=== PATIENT | male | born 1955 | race Caucasian/White ===

== ENCOUNTER 2017-11-09 08:59 | Emergency (ER) | payer BC ==
[2017-11-09 09:52] LABS: ABS Basophils 0.1 10^3/ul (0-0.2); ABS Eosinophils 0.1 10^3/ul (0-0.6); ABS Lymphocytes 1.2 10^3/ul (1.0-4.8); ABS Monocytes 0.8 10^3/ul (0-0.8); ABS Neutrophils 11.1 10^3/ul (1.5-7.7); ABS Nucleated RBC 0 10^3/ul; Eosinophil % 0.6 % (0-6); Hematocrit 46 % (42-52); Hemoglobin 15.8 g/dl (14.0-18.0); Lymphocyte % 8.9 % (25-47); Mean Corpuscular HGB Conc 35 g/dl (31-36); Mean Corpuscular Hemoglobin 32 pg (27-31); Mean Corpuscular Volume 92 fL (80-94); Mean Platelet Volume 6.2 um3 (7.4-10.4); Nucleated Red Blood Cells % 0.1; Platelet Count 346 10^3/ul (150-450); Red Blood Count 4.96 10^6/ul (4.0-5.4); Red Cell Distribution Width 13 % (10.5-15); White Blood Count 13.2 10^3/ul (3.5-10.8)
[2017-11-09 10:14] LABS: EGFR Non-African American 59.5 (>60)
--- NOTE | 2017-11-09 10:44 | RAD ---
Indication: Cough, respiratory disease, tobacco use. Comparison: No relevant prior exams available on the [facility] [place] PACS for comparison. Technique: Upright AP 0945 hours Report: Elevated lung volumes and both diffuse mild prominence of the interstitial markings and patchy rarefaction of the mid to upper lung zone interstitial markings. No focal pulmonary lesion, compelling alveolar consolidation, pleural effusion, pneumothorax. The heart, pulmonary vasculature, and mediastinal contours are unremarkable. IMPRESSION: Stigmata of obstructive lung disease. No acute pulmonary or cardiac process evident.
--- NOTE | 2017-11-09 11:01 | RAD ---
INDICATION: Shaky, difficulty getting words out sometimes, hypertension. COMPARISON: There are no prior studies available for comparison. TECHNIQUE: Contiguous axial sections of the brain were obtained from the skull base to the vertex without contrast. FINDINGS: The ventricles, cisterns and sulci are within normal limits. No significant focal abnormality or mass effect is seen. There is no evidence for hemorrhage. There is mild mucosal thickening within the ethmoid air cells. The visualized portion of the paranasal sinuses and mastoid air cells otherwise appear clear. IMPRESSION: NO EVIDENCE FOR GROSS ACUTE INFARCT, MASS EFFECT OR HEMORRHAGE.
[2017-11-09 11:57] LABS: Urine Appearance Clear; Urine Blood Negative (Negative); Urine Color Yellow; Urine Ketones Negative (Negative); Urine Protein Negative (Negative); Urine Specific Gravity 1.009 (1.010-1.030); Urine Urobilinogen Negative (Negative)
[2017-11-09] MEDS ORDERED: NS 0.9% 1000 ML* 1,000 ML BOLUS SCH (12:00)
[2017-11-09 13:24] VITALS: BP 149/89
--- NOTE | 2017-11-10 00:05 | ED ---
Jarvis Aguirre Natalie, scribed for Sheryl Hernandez MD on 11/09/17 at 1056 . Complex/Multi-Sys Presentation - HPI Summary HPI Summary: The pt is a 62 y/o M presenting to the ED accompanied by c/o body tremors starting yesterday, and feeling off for the last four days. He has started taking Prilosec about a month ago for a GI issue, which he took for 13 days, but then he started not feeling well. He had a similar episode a few years ago after taking Nexium, but last time his lips and fingers were numb. He has now been off the Prilosec for two weeks, and the feeling has returned, accompanied by hand tremors that turned into body tremors. He took his BP at home, which was higher than normal, so he came to the ED. In the ED, his BP is 163/102. Pt additionally states he feels weak but is not off balance, been shaky and unable to write clearly sometimes, difficulties speaking sometimes, mixing up his words , and wheezing. His stated that she had to write a check for the pt yesterday because he couldnt write. Pt denies CP and abd/GI pain. He takes baby aspirin every day. No PSHx. He has hx of COPD. Smoker. - History Of Current Complaint Chief Complaint: EDGeneral Time Seen by Provider: 11/09/17 09:32 Hx Obtained From: Patient Onset/Duration: Lasting Days - four days, Still Present Timing: Constant Severity Currently: Mild Severity Initially: Mild Associated Signs And Symptoms: Positive: Weakness, Wheezing, Other - body tremors, shaky hands, mixing words up when speaking - Allergies/Home Medications Allergies/Adverse Reactions: Allergies Allergy/AdvReac Type Severity Reaction Status Date / Time No Known Allergies Allergy Verified 11/09/17 09:05 PMH/Surg Hx/FS Hx/Imm Hx Endocrine/Hematology History: Denies: Hx Diabetes, Hx Thyroid Disease Cardiovascular History: Denies: Hx Hypertension Respiratory History: Denies: Hx Asthma, Hx Chronic Obstructive Pulmonary Disease (COPD) GI History: Denies: Hx Ulcer Infectious Disease History: No Infectious Disease History: Denies: Hx Hepatitis, Hx Human Immunodeficiency Virus (HIV), Traveled Outside the [place] in Last 30 Days - Family History Known Family History: Negative: Diabetes - Social History Alcohol Use: Occasionally Substance Use Type: Reports: None Hx Tobacco Use: Yes Smoking Status (MU): Heavy Every Day Tobacco Smoker Type: Cigarettes Amount Used/How Often: 1 1/2-2 PKS DAY Review of Systems Positive: Other - high BP Positive: Other - wheezing Neurological: Other - shaky hands, body tremors, speaking difficulties sometimes Positive: Weakness - generalized All Other Systems Reviewed And Are Negative: Yes Physical Exam - Summary Physical Exam Summary: Appearance: Well-appearing, moderate shortness of breath at rest, Well-nourished , speaks full sentences, hypertensive Skin: Warm, color reflects adequate perfusion Head: Normal Head/Face inspection, atraumatic Eyes: Conjunctiva clear ENT: Normal inspection Neck: Supple, no nodes, no JVD. Respiratory: Lung sounds diminished throughout, Normal breath sounds, no respiratory distress Cardio: RRR, No murmur, pulses normal, brisk capillary refill Abdomen: soft, nontender Bowel sounds: present Musculoskeletal: Strength Intact/ ROM intact. No calf tenderness. No edema. Psychological: Normal Neuro: Alert, muscle tone normal, no focal deficit Triage Information Reviewed: Yes Vital Signs On Initial Exam: Initial Vitals Temp Pulse Resp BP Pulse Ox 97.8 F 89 16 183/100 99 11/09/17 09:02 11/09/17 09:02 11/09/17 09:02 11/09/17 09:02 11/09/17 09:02 Vital Signs Reviewed: Yes Diagnostics - Vital Signs Vital Signs Temp Pulse Resp BP Pulse Ox 11/09/17 09:38 89 17 163/102 98 11/09/17 09:09 91 12 148/90 100 11/09/17 09:07 97 98 11/09/17 09:02 97.8 F 89 16 183/100 99 - Laboratory Lab Results: Lab Results 11/09/17 11/09/17 Range/Units 09:43 09:43 WBC 13.2 H (3.5-10.8) 10^3/ul RBC 4.96 (4.0-5.4) 10^6/ul Hgb 15.8 (14.0-18.0) g/dl Hct 46 (42-52) % MCV 92 (80-94) fL MCH 32 H (27-31) pg MCHC 35 (31-36) g/dl RDW 13 (10.5-15) % Plt Count 346 (150-450) 10^3/ul MPV 6.2 L (7.4-10.4) um3 Neut % (Auto) 84.0 H (38-83) % Lymph % (Auto) 8.9 L (25-47) % Gregg % (Auto) 6.0 (0-7) % Eos % (Auto) 0.6 (0-6) % Baso % (Auto) 0.5 (0-2) % Absolute Neuts (auto) 11.1 H (1.5-7.7) 10^3/ul Absolute Lymphs (auto) 1.2 (1.0-4.8) 10^3/ul Absolute Monos (auto) 0.8 (0-0.8) 10^3/ul Absolute Eos (auto) 0.1 (0-0.6) 10^3/ul Absolute Basos (auto) 0.1 (0-0.2) 10^3/ul Absolute Nucleated RBC 0 10^3/ul Nucleated RBC % 0.1 INR (Anticoag Therapy) 1.10 H (0.77-1.02) APTT 34.3 (26.0-36.3) seconds D-Dimer, Quantitative < 200 (Less Than 230) ng/mL Result Diagrams: 11/09/17 09:43 11/09/17 09:43 Lab Statement: Any lab studies that have been ordered have been reviewed, and results considered in the medical decision making process. - Radiology CXR Xray Interpretation: Positive (See Comments) - Stigmata of obstructive lung disease. No acute pulmonary or cardiac process evident. ED physician has reviewed this report. Radiology Interpretation Completed By: Radiologist - CT Brain CT CT Interpretation: No Acute Changes - No evidence for gross acute infarct, mass effect or hemorrhage. ED physician has reviewed this report. CT Interpretation Completed By: Radiologist - EKG 09:36 Cardiac Rate: NL EKG Rhythm: Sinus Rhythm - [address] Segment: Non-Specific Ectopy: None EKG Interpretation: Nml AVIVCT, nml QTc, R axis deviation. EKG Comparison: No Significant Change Re-Evaluation - Re-Evaluation First Eval Re-Evaluation Time: 11:53 Change: Unchanged Comment: The pt is feeling better, but had a spell of dizziness and nausea since initial evaluation. He will receive IV fluids. With tingling and exposure to ticks in the past, B12 and Lyme disease tract will be drawn. Complex Multi-Symp Course/Dx Course Of Treatment: Pt's medications reviewed during this visit. Allergies noted. High blood pressure noted. Braint CT, CXR, and labs are unremarkable. Pt received 1L nml saline IV fluids. Dx is left submandibular lymphadenopathy. The pt will be discharged home under stable conditions. Pt is agreeable with this plan. - Diagnoses Provider Diagnoses: Submandibular lymphadenopathy Discharge - Sign-Out/Discharge Documenting (check all that apply): Discharge/Admit/Transfer - Discharge Plan Condition: Stable Disposition: HOME Prescriptions: Amoxicillin PO (*) [Amoxicillin 875 MG (*)] 875 mg PO BID #20 tab Patient Education Materials: Hyponatremia (ED) Referrals: Chilo Lyle MD [Primary Care Provider] - 2 Days Additional Instructions: Return to the ED for any new or worsening symptoms. - Billing Disposition and Condition Condition: STABLE Disposition: HOME The documentation as recorded by the Jarvis gustafson Natalie accurately reflects the service I personally performed and the decisions made by , Sheryl Hernandez MD.
== END 2017-11-09 14:38 | disposition home or self-care (01) ==
LOC: ED 08:59
DX: R59.0 Localized enlarged lymph nodes (principal); F17.210 Nicotine dependence, cigarettes, uncomplicated; J44.9 Chronic obstructive pulmonary disease, unspecified; Z79.82 Long term (current) use of aspirin
CPT/HCPCS: 36415; 70450; 71045; 80053; 81003; 82550; 82553; 82607; 82803; 83605; 83735; 83880; 84436; 84443; 84484; 85025; 85379; 85610; 85730; 86618; 93005; 96360; 99282